=== PATIENT | male | born 2000 | race Caucasian/White ===

== ENCOUNTER 2023-07-01 13:45 | Inpatient (IN) | payer MEDICAID, SELFPAY ==
[2023-07-01 13:52] VITALS: BP 148/95; PULSE 114; RESP 18; TEMP 36.8; O2SAT 97
--- NOTE | 2023-07-01 14:06 | ED.C_ITS ---
HPI - Psych 2 General: Chief Complaint: Psychiatric Symptoms Stated Complaint: 96 Hold Time Seen by Provider: 07/01/23 14:03 Source: patient and family (grandmother) Mode of arrival: ambulatory Limitations: no limitations History of Present Illness: Patient is a 22-year-old male presents to ED today along with his grandmother on a 96-hour hold. According to hold paperwork patient is extremely paranoid and feels that people are out to get him. He is telling his grandmother to get him guns out of the safe so he can take care of them. Hold paperwork states he is having visual and auditory hallucinations along with bizarre behavior and increased agitation. He was reportedly seen at the [facility]. Grandmother states he was recently released from assisted approximately a week ago. He served a total of 3 years and she will secondary to drug charges. Grandmother states his biological mother has schizophrenia. His father is a chronic drug user. Patient himself has a history of drug abuse. Grandmother states he has also had lots of other childhood trauma. He has been on many psychiatric meds in the past although is not currently taking anything. Onset (ago): day(s) History of same: Yes Context: not taking psychiatric medications Associated symptoms: Reports auditory hallucinations and visual hallucinations; Deny depression, homicidal ideation or suicidal ideation Treatments prior to arrival: placed on mental health hold Review of Systems 2 Const: Denies: fever(s) or chills Card: Denies: chest pain, palpitations, lightheadedness or syncope Resp: Denies: dyspnea GI: Denies: abdominal pain, nausea, vomiting or diarrhea Skin/Breast: Denies: rash Neuro: Denies: headache(s) Psych: Reports: loss of interest, paranoia, visual hallucinations and auditory hallucinations; Denies: anxiety, depression, suicidal ideation or homicidal ideation Physical Exam 2 Const: COMMON NORMALS: no acute distress, patient oriented x3, alert and well nourished GENERAL APPEARANCE: cooperative and well kempt Resp: COMMON NORMALS: normal respiratory effort and clear to auscultation bilaterally AUSCULTATION: clear to auscultation bilaterally Cardio: COMMON NORMALS: regular rate and regular rhythm RATE: regular rate RHYTHM: regular rhythm Neuro: COMMON NORMALS: patient oriented x3 SENSORIUM/ORIENTATION: Yes alert Psych: COMMON NORMALS: mental status grossly normal, cooperative, normal affect, speech normal, activity/motor behavior normal, denies homicidal ideation and denies suicidal ideation APPEARANCE: Yes grossly normal and Yes well kempt ATTITUDE: Yes calm ACTIVITY/MOTOR BEHAVIOR: Yes appropriate eye contact and No psychomotor agitation SPEECH: Yes normal speech MOOD & AFFECT: Yes euthymic mood ATTENTION/CONCENTRATION: Yes attention grossly intact and Yes concentration grossly intact MEMORY/COGNITION: Yes memory grossly intact INSIGHT: Limited insight present (Psych) JUDGEMENT: Limited judgement present (Psych) Course 2 Consultations: Consultation #1: Dr. Banks-accepts to NPU Vital Signs: Vital signs: Vital Signs Temperature 98.2 F 07/01/23 13:52 Pulse Rate 114 H 07/01/23 13:52 Respiratory Rate 18 07/01/23 13:52 Blood Pressure 148/95 07/01/23 13:52 Pulse Oximetry 97 07/01/23 13:52 Oxygen Delivery Me thod Room Air 07/01/23 13:52 MDM - Psych Medical Decision Making Patient will be an admit to NPU to Dr. Banks. He is on a 96-hour hold. Medical Records I reviewed the patient's medical records. Lab Data I reviewed the patient's lab results. 07/01/23 14:24 07/01/23 14:24 Laboratory Results WBC 7.02 10^3/uL (3.29-11.43) 07/01/23 14:24 RBC 4.72 10^6/uL (3.85-5.65) 07/01/23 14:24 Hgb 14.60 g/dL (11.27-16.99) 07/01/23 14:24 Hct 45.0 % (37-53) 07/01/23 14:24 MCV 95.3 fl (82-101) 07/01/23 14:24 MCH 30.9 pg (27-33) 07/01/23 14:24 MCHC 32.4 g/dL (30-55) 07/01/23 14:24 RDW 13.1 % (12.1-15.1) 07/01/23 14:24 Plt Count 168 10^3/cmm (157-399) 07/01/23 14:24 MPV 11.6 fL (7.4-10.4) H 07/01/23 14:24 Neut % (Auto) 66.5 % 07/01/23 14:24 Lymph % (Auto) 18.1 % 07/01/23 14:24 [place] % (Auto) 10.5 % 07/01/23 14:24 Eos % (Auto) 1.9 % 07/01/23 14:24 Baso % (Auto) 0.9 % 07/01/23 14:24 Neut # (Auto) 4.67 10^3/uL (1.8-7.7) 07/01/23 14:24 Lymph # (Auto) 1.3 10^3/uL (0.8-4.8) 07/01/23 14:24 [place] # (Auto) 0.7 10^3/uL (0.2-0.9) 07/01/23 14:24 Eos # (Auto) 0.1 10^3/uL (0.0-0.8) 07/01/23 14:24 Baso # (Auto) 0.1 10^3/uL (0.0-0.1) 07/01/23 14:24 Nucleated RBC % (auto) 0 % 07/01/23 14: Nucleated RBCs # 0.0 /100WBC 07/01/23 14:24 Sodium 137 mmol/L (136-145) 07/01/23 14:24 Potassium 4.9 mmol/L (3.5-5.1) 07/01/23 14:24 Chloride 99 mmol/L (98-107) 07/01/23 14:24 Carbon Dioxide 28 mmol/L (22-29) 07/01/23 14:24 Anion Gap 14.9 (5-19) 07/01/23 14:24 BUN 19 mg/dL (6-20) 07/01/23 14:24 Creatinine 0.7 mg/dL (0.7-1.2) 07/01/23 14:24 GFR Calculation 138.6 mL/min (90-130) H 07/01/23 14:24 Glucose 102 mg/dL (65-115) 07/01/23 14:24 Calculated Osmolality 286 mOsm/kg (285-295) 07/01/23 14:24 Calcium 9.4 mg/dL (8.5-10.5) 07/01/23 14:24 Total Bilirubin 0.2 mg/dL (0.15-1.2) 07/01/23 14:24 AST 49 U/L (0-40) H 07/01/23 14:24 ALT 82 U/L (0-41) H 07/01/23 14:24 Alkaline Phosphatase 97 U/L (40-130) 07/01/23 14:24 Total Protein 7.7 g/dL (6.6-8.7) 07/01/23 14:24 Albumin 4.3 g/dL (3.5-5.2) 07/01/23 14:24 Globulin 3.4 g/dL (1.3-4.6) 07/01/23 14:24 Salicylates 0.5 mg/dL (3-10) L 07/01/23 14:24 Urine Opiates Screen Negative ng/mL (Negative) 07/01/23 14:14 Acetaminophen < 5.0 ug/mL (10-30) L 07/01/23 14:24 Ur Barbiturates Screen Negative ng/mL (Negative) 07/01/23 14:14 Ur Phencyclidine Scrn Negative ng/mL (Negative) 07/01/23 14:14 Ur Amphetamines Screen Negative ng/mL (Negative) 07/01/23 14:14 U Benzodiazepines Scrn Negative ng/mL (Negative) 07/01/23 14:14 Urine Cocaine Screen Negative ng/mL (Negative) 07/01/23 14:14 U Marijuana (THC) Screen Negative ng/mL (Negative) 07/01/23 14:14 Ethyl Alcohol < 10 mg/dL (0-10) 07/01/23 14:24 No radiology studies performed this visit Discharge Plan Discharge Patient Disposition: Admitted As Inpatient Clinical Impression: Acute psychosis, Involuntary commitment Condition: Stable Prescriptions: No Action No Known Home Medications Referrals: Wilson Wang MD [Primary Care Provider] - Coding Level of Care Code ED Track Production Engineer for Howard Ansari
[2023-07-01 14:34] LABS: Basophils # 0.1 10^3/uL (0.0-0.1); Basophils % 0.9 %; Eosinophils # 0.1 10^3/uL (0.0-0.8); Eosinophils % 1.9 %; Lymphocytes # 1.3 10^3/uL (0.8-4.8); Lymphocytes % 18.1 %; Mean Corpuscular HGB Conc 32.4 g/dL (30-55); Mean Corpuscular Hemoglobin 30.9 pg (27-33); Mean Corpuscular Volume 95.3 fl (82-101); Mean Platelet Volume 11.6 fL (7.4-10.4); Monocytes # 0.7 10^3/uL (0.2-0.9); Monocytes % 10.5 %; Neutrophils # 4.67 10^3/uL (1.8-7.7); Neutrophils % 66.5 %; Nucleated Red Blood Cells % 0 %; Platelet Count 168 10^3/cmm (157-399); Red Blood Count 4.72 10^6/uL (3.85-5.65); Red Cell Distribution Width 13.1 % (12.1-15.1); White Blood Count 7.02 10^3/uL (3.29-11.43)
[2023-07-01 14:35] LABS: Amphetamines Screen Urine Negative (Negative); Barbiturates Screen Urine Negative (Negative); Benzodiazepines Screen Urine Negative (Negative); Cocaine Screen Urine Negative (Negative); Opiate Screen Urine Negative (Negative); PCP Screen Urine Negative (Negative); THC Screen Urine Negative (Negative)
[2023-07-01 15:00] LABS: Alanine Aminotransferase 82 U/L (0-41); Albumin Level 4.3 g/dL (3.5-5.2); Alkaline Phosphatase 97 U/L (40-130); Anion Gap 14.9 (5-19); Aspartate Amino Transferase 49 U/L (0-40); Blood Urea Nitrogen 19 mg/dL (6-20); Calcium 9.4 mg/dL (8.5-10.5); Carbon Dioxide 28 mmol/L (22-29); Chloride 99 mmol/L (98-107); Globulin 3.4 g/dL (1.3-4.6); Glomerular Filtration Rate 138.6 mL/min (90-130); Glucose 102 mg/dL (65-115); Osmolality Calculated 286 mOsm/kg (285-295); Potassium 4.9 mmol/L (3.5-5.1); Salicylate 0.5 mg/dL (3-10); Sodium 137 mmol/L (136-145); Total Bilirubin 0.2 mg/dL (0.15-1.2); Total Protein 7.7 g/dL (6.6-8.7)
[2023-07-01 15:01] LABS: Acetaminophen < 5.0 ug/mL (10-30); Alcohol Level < 10 mg/dL (0-10)
--- NOTE | 2023-07-01 15:16 | PC.NURSE ---
96 hr rights reviewed with patient @1405 with assistance of [facility] security dispatcher Syd. All education reviewed. No questions or concerns. Patient did exhibit agitation towards grandmother who was sitting with him. [address], Grandmother was asked to leave and educated on visiting hours and policy through [facility]. She left without any incident. Patient copy was left with patient.
[2023-07-01 15:29] VITALS: BP 129/79; PULSE 100; RESP 16; O2SAT 98
[2023-07-01 15:50] VITALS: BP 129/85; PULSE 101; RESP 16; TEMP 36.7; O2SAT 98
[2023-07-01] MEDS: nicotine 2 mg Gum BUCCAL ×2 (16:07→18:09)
--- NOTE | 2023-07-01 17:07 | PC.NURSE ---
Patient arrived on unit with security via wheelchair at 1549. Patient cooperative during assessment. Patient given a sandwhich and drink.Patient thoroughly searched; no contraband uncovered.
[2023-07-01] MEDS: hyDROXYzine 25 mg Capsule 50 MG PO (17:49)
[2023-07-01 20:04] VITALS: BP 112/71; PULSE 93; RESP 17; TEMP 36.7; O2SAT 99
[2023-07-01] MEDS: nicotine 4 mg lozenge MUCOUS MEM (20:39)
[2023-07-02 06:00] VITALS: BP 109/66; PULSE 88; RESP 16; TEMP 36.6; O2SAT 98
[2023-07-02] MEDS: nicotine 4 mg lozenge MUCOUS MEM ×4 (07:12→19:15)
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
[2023-07-02] MEDS: OLANZapine 5 mg ODT PO (10:20)
[2023-07-02 14:00] VITALS: BP 109/65; PULSE 105; RESP 20; TEMP 36.9; O2SAT 97
--- NOTE | 2023-07-02 18:33 | PC.NURSE ---
ROOM SEARCH PREFORMED BY STAFF NO CONTRABAND FOUND.
--- NOTE | 2023-07-02 18:34 | PC.NURSE ---
ROOM SEARCH PREFORMED BY STAFF NO CONTRABAND FOUND.
[2023-07-02 20:31] VITALS: BP 157/95; PULSE 95; RESP 17; O2SAT 99
[2023-07-02] MEDS: quetiapine XR (24HR) 300 mg Tablet PO (20:52)
[2023-07-02] MEDS: trazodone 50 mg Tablet PO (20:52)
[2023-07-03 06:00] VITALS: BP 120/72; PULSE 71; RESP 16; TEMP 36.2; O2SAT 95
[2023-07-03] MEDS: nicotine 4 mg lozenge MUCOUS MEM ×3 (11:54→20:57)
[2023-07-03 14:00] VITALS: BP 106/55; PULSE 108; RESP 17; TEMP 36.6; O2SAT 96
--- NOTE | 2023-07-03 14:02 | P.NPUPN_ITS ---
Subjective NPU 2 Subjective: 22-year-old male with a history of bipol ar 1 disorder admitted with psychosis with decreased need for sleep, and paranoia. Patient had reported improved sleep on Seroquel XR yesterday. He had appeared less grandiose. He had reported improved energy. Patient reported that he continued to have thoughts of his time in [facility] where he had been traumatized. He had reported that he frequently feels on edge when he is outside. He reports that he often struggles with sleep and has flashbacks regarding traumatic events in his life. He reports that he struggles with getting those thoughts out of his mind and states that he sometimes feels that he is back in that situation again. He had reported that he struggles with repeatedly thinking about the time where he was arrested and states that he frequently feels that other people are trying to mess with him. Mental Status Exam 2 MSE Comments: Patient is a thin white male who was alert and oriented to person place and time. His hygiene was fair. There was no evidence of any abnormal involuntary motor movements tics or tremors. His speech was normal in rate today with normal in volume. His mood was described as better. His affect was less irritable. His thought process was linear with less rumination with continued focus on his ideas of persecution. His thought content showed no evidence of homicidal or suicidal ideation. There was significant ideas of reference. He did not appear to be responding to internal stimuli. His insight is impaired. His judgment is poor. His impulse control appeared limited at this time. Vitals/I&O/Wt Last Vital Signs Temp 97.2 F L 07/03/23 06:00 Pulse 71 07/03/23 06:00 Resp 16 07/03/23 06:00 BP 120/72 07/03/23 06:00 Pulse Ox 95 07/03/23 06:00 O2 Del Method Room Air 07/01/23 15:51 Weight last 48 hrs Weight 74.899 kg Data NPU 07/01/23 14:24 07/01/23 14:24 A&P Assessment and plan (1) Bipolar I disorder with scar: (2) Acute psychosis: (3) PTSD (post-traumatic stress disorder): Plan 22-year-old male involuntarily placed in psychiatric facility with a history of psychosis currently showing evidence of scar. The patient is agreeable to receiving treatment here as he has been without medications for last 8 months. #1.? Engage patient in individual milieu and group therapy. #2?? Recommend sober living treatment at the highest level of care to which the patient is willing to commit #3??? Continue Seroquel [id number] at night with increase planned. Patient already showing improvement. #4?? TO-15 minute checks #5?? Will attempt to gather collateral information Involuntary Hold Information 2 96 Hour Hold: 96 Hour Involuntary Admission: Yes 96 Hour Hold Ending Date: 07/07/23 96 Hour Hold Ending Time: 13:52 Attestations NPU 2 Medical Necessity Statement*: Inpatient hospitalization is medically necessary and deemed to ?be ?the clinically appropriate intervention ?at this time.? We will monitor/initiate medications and make changes as indicated.? The patient?s likely length of stay is 7-10 days. Coding Level of Care Code Acute Code for [facility] Fwd Diagnoses Bipolar I disorder with scar F31.10 Acute psychosis F23 PTSD (post-traumatic stress disorder) F43.10
[2023-07-03] MEDS: quetiapine XR (24HR) 50 mg Tablet 100 MG PO (17:51)
[2023-07-03] MEDS: quetiapine XR (24HR) 300 mg Tablet PO (17:51)
[2023-07-04 06:00] VITALS: RESP 15
--- NOTE | 2023-07-04 06:21 | PC.NURSE ---
Only respirations documented per charge nurse, Bc WHEELER, due to the patient level of volatility, agitation, and safety of staff and patient.
[2023-07-04] MEDS: nicotine 4 mg lozenge MUCOUS MEM ×4 (09:40→18:06)
--- NOTE | 2023-07-04 11:03 | PC.NURSE ---
room search preformed no contra band found. beds stripped and cleaned.
[2023-07-04 13:14] VITALS: BP 150/96; PULSE 121; RESP 20; TEMP 36.9; O2SAT 97
--- NOTE | 2023-07-04 16:08 | W.PM.NPUPNS ---
Subjective NPU Subjective: 22-year-old male with a history of bipolar 1 disorder admitted with psychosis with decreased need for sleep, and paranoia. The patient did not report that his thoughts were racing as much today. He had continued to perseverate about being here against his will and continue to state his suspicions that his grandmother was trying to take over his rights. He reported no side effects from the Seroquel extended release. He stated that he was willing to consider living in another place if it meant that he could go home. He stated that he would be able to take a pill at night to help him with his thoughts. He had continued to endorse a somewhat traumatic history of having been placed in dangerous situations throughout his life and reported that he had been in isolation for a good deal of time while he was incarcerated from the age of 16 until the age of 18. Patient did not elicit any thoughts of hurting himself or others on the unit. He was compliant and redirectable. He did continue to express frustration with staff regarding his involuntary hospitalization. He had reported that he had done nothing wrong and continued to report that others outside of here were trying to keep him here unnecessarily. Mental Status Exam MSE Comments: Patient is a thin white male who was alert and oriented to person place and time. His hygiene was fair. There was no evidence of any abnormal involuntary motor movements tics or tremors. His speech was normal in rate today with normal in volume. His mood was described as okay. His affect was somewhat flat. His thought process was linear with continued rumination regarding his involuntary hospitalization. His thought content showed no evidence of homicidal or suicidal ideation. There was significant ideas of reference and ideas of persecution. He did not appear to be responding to internal stimuli. His insight is limited. His judgment is poor. His impulse control appeared limited at this time. Vitals/I&O/Wt Last Vital Signs Temp 98.4 F 07/04/23 13:14 Pulse 121 H 07/04/23 13:14 Resp 20 H 07/04/23 13:14 BP 150/96 07/04/23 13:14 Pulse Ox 97 07/04/23 13:14 O2 Del Method Room Air 07/04/23 13:14 Weight last 48 hrs Weight 74.899 kg Data NPU 07/01/23 14:24 04/12/24 14:24 A&P Assessment and plan (1) Bipolar I disorder with scar: (2) Acute psychosis: (3) PTSD (post-traumatic stress disorder): Plan 22-year-old male involuntarily placed in psychiatric facility with a history of psychosis currently showing evidence of scar. The patient is agreeable to receiving treatment here as he has been without medications for last 8 months. #1.? Engage patient in individual milieu and group therapy. #2?? Recommend sober living treatment at the highest level of care to which the patient is willing to commit #3??? Increase seroquel 500mg xl at 6Pm. Patient continuing to show improvement. #4?? TO-15 minute checks #5?? Will attempt to gather collateral information Involuntary Hold Information 96 Hour Hold: 96 Hour Involuntary Admission: Yes 96 Hour Hold Ending Date: 07/07/23 96 Hour Hold Ending Time: 13:52 Attestations NPU Medical Necessity Statement*: Inpatient hospitalization is medically necessary and deemed to ?be ?the clinically appropriate intervention ?at this time.? We will monitor/initiate medications and make changes as indicated.? The patient?s likely length of stay is 2-3 days. Coding Level of Care Code Acute Code for [facility] Fwd Diagnoses Bipolar I disorder with scar F31.10 Acute psychosis F23 PTSD (post-traumatic stress disorder) F43.10
[2023-07-04] MEDS: quetiapine XR (24HR) 50 mg Tablet 200 MG PO (17:34)
[2023-07-04] MEDS: quetiapine XR (24HR) 300 mg Tablet PO (17:34)
[2023-07-04 20:01] VITALS: BP 149/91; PULSE 86; RESP 17; TEMP 36.8; O2SAT 97
[2023-07-05 06:43] VITALS: RESP 16
--- NOTE | 2023-07-05 06:54 | PC.NURSE ---
Per charge nurse just count respirations, do not wake the patient up from sleep, this is for staff and patient safety
[2023-07-05] MEDS: nicotine 4 mg lozenge MUCOUS MEM ×2 (07:53→16:00)
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
[2023-07-05 14:00] VITALS: BP 116/78; PULSE 92; RESP 20; TEMP 36.6; O2SAT 99
[2023-07-05 16:12] VITALS: BP 116/78; PULSE 92; RESP 20; TEMP 36.6; O2SAT 99
== END 2023-07-05 17:05 | disposition home or self-care (01) | DRG 885 ==
LOC: ER 15:06 → NP 15:20
PROVIDERS: Admitting Provider Psychiatry & Neurology Psychiatry; Emergency Provider Physician Assistant; PCP Family Medicine; Visit Provider Psychiatry & Neurology Psychiatry
DX: F23 Brief psychotic disorder (principal); F31.2 Bipolar disorder, current episode manic severe with psychotic features; F43.12 Post-traumatic stress disorder, chronic
CPT/HCPCS: 36415; 80053; 80306; 80307; 85025; 97165; 99285; J9999

== ENCOUNTER 2023-09-15 12:58 | Inpatient (IN) | payer MEDICAID, SELFPAY ==
[2023-09-15 13:00] VITALS: BP 155/89; PULSE 93; RESP 18; TEMP 36.9; O2SAT 97; BMI 26.4
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
[2023-09-15 13:12] LABS: Basophils % 0.6 %; Eosinophils # 0.1 10^3/uL (0.0-0.8); Eosinophils % 1.9 %; Hematocrit 44.7 % (37-53); Lymphocytes # 1.3 10^3/uL (0.8-4.8); Lymphocytes % 23.9 %; Mean Corpuscular HGB Conc 33.8 g/dL (30-55); Mean Corpuscular Hemoglobin 31.1 pg (27-33); Monocytes # 0.9 10^3/uL (0.2-0.9); Monocytes % 16.5 %; Neutrophils # 2.97 10^3/uL (1.8-7.7); Neutrophils % 56.3 %; Nucleated Red Blood Cells % 0 %; Platelet Count 214 10^3/cmm (157-399); Red Blood Count 4.86 10^6/uL (3.85-5.65); Red Cell Distribution Width 12.6 % (12.1-15.1); White Blood Count 5.27 10^3/uL (3.29-11.43)
[2023-09-15 13:24] VITALS: BP 155/89; PULSE 93; RESP 18; TEMP 36.9; O2SAT 97
[2023-09-15 13:32] LABS: Ammonia 37 umol/L (16-60)
[2023-09-15 13:40] LABS: Bilirubin Urine Neg (Negative); Blood Urine Neg (Negative); Glucose Urine UA Norm (Normal); Ketones Urine Negative (Negative); Leukocyte Esterase Urine Negative (Negative); Nitrate Urine Negative (Negative); Protein Urine Neg (Negative); Urine Appearance Clear (CLEAR); Urine Color Yellow (Yellow); Urobilinogen Urine Norm (Negative); pH Urine 7 (5-7)
[2023-09-15 13:41] LABS: Alanine Aminotransferase 61 U/L (0-41); Albumin Level 4.3 g/dL (3.5-5.2); Alkaline Phosphatase 101 U/L (40-130); Anion Gap 15.2 (5-19); Aspartate Amino Transferase 39 U/L (0-40); Blood Urea Nitrogen 10 mg/dL (6-20); Carbon Dioxide 24 mmol/L (22-29); Chloride 103 mmol/L (98-107); Creatinine Clr Calc Pharmacy 135.6994; Globulin 3.4 g/dL (1.3-4.6); Glomerular Filtration Rate 91.8 mL/min (90-130); Glucose 112 mg/dL (65-115); Osmolality Calculated 286 mOsm/kg (285-295); Potassium 4.2 mmol/L (3.5-5.1); Salicylate 1.4 mg/dL (3-10); Sodium 138 mmol/L (136-145); Thyroid Stimulating Hormone 6.21 uIU/mL (0.27-4.20); Total Bilirubin 0.2 mg/dL (0.15-1.2); Total Protein 7.7 g/dL (6.6-8.7)
[2023-09-15 13:42] LABS: Add Urine Culture? No; Alcohol Level < 10 mg/dL (0-10)
[2023-09-15 13:47] LABS: Amphetamines Screen Urine Negative (Negative); Barbiturates Screen Urine Negative (Negative); Benzodiazepines Screen Urine Negative (Negative); Cocaine Screen Urine Negative (Negative); Opiate Screen Urine Negative (Negative); PCP Screen Urine Negative (Negative); THC Screen Urine Negative (Negative)
--- NOTE | 2023-09-15 13:56 | ECG_ITS ---
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 Measurements Intervals [place] Rate: 92 P: 31 SD: 174 QRS: 40 QRSD: 93 T: 30 QT: 322 QTc: 398 Interpretive Statements SINUS RHYTHM POSSIBLE RIGHT VENTRICULAR CONDUCTION DELAY [RSR (QR) IN V1/V2] No previous ECG available for comparison Electronically Signed On 09-15-2023 14:11:26 CDT by Luis Fox M.D. [id number]
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
[2023-09-15] MEDS: ziprasidone 20 mg/mL SDV IM (17:43)
[2023-09-15] MEDS: LORazepam 2 mg/mL INJ 10 mL MDV IM (17:43)
--- NOTE | 2023-09-15 17:44 | PC.NURSE ---
pt very agitated, standing at ER 8 doorway, pacing. pt states he shouldn't be here, states someone in [facility] is the reason he is admitted on a 96hr hold. This nurse, security, and multiple ED staff members at bedside.
[2023-09-15 18:10] VITALS: BP 140/95; PULSE 84; RESP 16; TEMP 36.5; O2SAT 95
[2023-09-15 18:19] VITALS: BP 154/81; RESP 18
[2023-09-16 06:00] VITALS: BP 117/74; PULSE 69; RESP 16; TEMP 36.6; O2SAT 97
[2023-09-16] MEDS: nicotine 4 mg lozenge MUCOUS MEM ×3 (09:46→14:42)
--- NOTE | 2023-09-16 10:34 | PC.NURSE ---
PT CURRENTLY DENIES SI/HI/AH/VH. PT IS RESTLESS AND OBSESSIVE. PT SPEECH IS MUMBLED, RAMBLING, AND PRESSURED. PT CURRENTLY DENIES DEPRESSION AND ANXIETY. PT WAS COOPERATIVE WITH ASSESSMENT. PT CURRENT NEEDS ARE MET AT THIS TIME.
[2023-09-16 14:00] VITALS: BP 146/85; PULSE 99; RESP 16; TEMP 36.7; O2SAT 97
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
[2023-09-16] MEDS: nicotine 2 mg Gum BUCCAL ×3 (17:19→21:27)
[2023-09-16 21:22] VITALS: BP 144/86; PULSE 88; RESP 18; TEMP 36.8; O2SAT 96
[2023-09-16] MEDS: quetiapine XR (24HR) 300 mg Tablet 600 MG PO (22:10)
[2023-09-17 06:00] VITALS: BP 128/74; PULSE 77; RESP 18; O2SAT 97
--- NOTE | 2023-09-17 09:19 | PC.NURSE ---
RESTING IN BED, AROUSES TO VOICE. DENIES SI/HI AND AVH AT THIS TIME. PT IS NOTED TO HAVE FLAT AFFECT AND WITHDRAWS TO ROOM. RATES ANXIETY 4/10 AND DEPRESSION 5/10. PT REPORTS WHEN HE IS NOT SLEEPING HE HAS RACING THOUGHTS. DENIES PAIN. PT TAKES NOT SCHEDULED AM MEDICATIONS THIS AM, DECLINES PRN FOR ANXIETY. STATES GOAL FOR THE DAY IS TO TALK TO THE DR. ALL QUESTIONS ANSWERED AND SUPPORT WAS VOICED.
[2023-09-17] MEDS: nicotine 2 mg Gum BUCCAL (12:00)
[2023-09-17 14:00] VITALS: BP 142/91; PULSE 79; RESP 20; TEMP 36.9; O2SAT 96
[2023-09-17] MEDS: nicotine 4 mg lozenge MUCOUS MEM ×3 (14:03→19:16)
[2023-09-17] MEDS: quetiapine XR (24HR) 300 mg Tablet 600 MG PO (19:16)
--- NOTE | 2023-09-17 20:07 | P.NPUPN_ITS ---
Subjective NPU 2 Subjective: 22-year-old male with a history of bipol ar 1 disorder admitted with psychosis with decreased need for sleep, and paranoia. He continued to report that his brain was going through a time loop. He reported that his thoughts continue to race. He had expressed frustration at not being able to find the right medication to help him. He had reported that he had rapid changes in mood that his sleep that appeared to be triggered by the statements that his grandmother made. He reported having frequent periods of depression as well. Mental Status Exam 2 MSE Comments: Patient is a well-nourished well-developed white male in hospital scrubs with adequate grooming and limited eye contact. Some tattoos on exposed skin. No abnormal movements except for psychomotor retardation. Cooperative with exam in mild to moderate distress. Speech was normal in volume and normal rate. Mood described as frustrated. His affect was subdued and guarded. Thought process was linear. Thought content: Patient denied suicidal or homicidal ideation, there were no delusions reported but concerns for paranoia and persecutory ideas of reference/delusions were noted, he denied auditory or visual hallucinations. He did not appear to be responding to internal stimuli. The patient appeared to be experiencing some confusion and distress related to past traumatic events. He denied any current suicidal ideation or hallucinations. He reported feeling drowsy but denied any paranoia. Attention and concentration were intact and memory was somewhat unreliable but none were formally tested. He is alert and oriented x 3. Insight and judgment were limited and impulse control was limited. Vitals/I&O/Wt Last Vital Signs Temp 98.4 F 09/17/23 14:00 Pulse 79 09/17/23 14:00 Resp 20 H 09/17/23 14:00 BP 142/91 09/17/23 14:00 Pulse Ox 96 09/17/23 14:00 O2 Del Method Room Air 09/17/23 06:00 Data NPU 09/15/23 13:07 09/15/23 13:07 A&P Assessment and plan (1) Acute psychosis: (2) Bipolar I disorder with scar: (3) PTSD (post-traumatic stress disorder): Plan 22-year-old male with a significant history of mental health and addiction issues known to this unit from hospitalization 2-1/2 months ago presents at the behest of his outpatient treatment team secondary to concerns for continued psychosis on the current medication. The patient appears to be struggling with past trauma and is expressing dissatisfaction with his current medication regimen. There seems to be some confusion regarding past events, which may be contributing to his current distress. His lack of employment and feelings of boredom may also be contributing factors to his mental health issues. 1.? Increase Seroquel xr to 700mg as patient does not wish to consider Invega long acting injectable despite support of its effectiveness. 2.? Continue every 15 minute checks for safety. 3.??Encourage individual, group and milieu therapy. 4.? Encourage sober living treatment after discharge at the highest level care to which he is willing to commit. 5.??Will attempt to gather collateral information. Involuntary Hold Information 2 96 Hour Hold: 96 Hour Involuntary Admission: Yes 96 Hour Hold Ending Date: 09/21/23 96 Hour Hold Ending Time: 18:30 Attestations NPU 2 Medical Necessity Statement*: Inpatient hospitalization is medically necessary and the clinically appropriate intervention at this time.? We will monitor/initiate medications and make changes as indicated.? ? The patient?s likely length of stay is 7-10 days. Coding Level of Care Code Acute Code for g Fwd Diagnoses Acute psychosis F23 Bipolar I disorder with scar F31.10 PTSD (post-traumatic stress disorder) F43.10
[2023-09-17 20:56] VITALS: BP 146/88; PULSE 106; RESP 18; TEMP 37.1; O2SAT 97
[2023-09-17] MEDS: quetiapine XR (24HR) 50 mg Tablet 100 MG PO (21:00)
[2023-09-18 06:00] VITALS: BP 118/61; PULSE 93; RESP 17; TEMP 36.5; O2SAT 98
[2023-09-18] MEDS: nicotine 4 mg lozenge MUCOUS MEM ×4 (08:51→18:44)
--- NOTE | 2023-09-18 12:01 | PC.NURSE ---
PT GRANDMOTHER WHO IS ON THE HIPPA FORMS CALLED TO CHECK IN ON PT SPOKE WITH THIS NURSE ABOUT HER CONCERNS. PT GRANDMOTHER IS REQUESTING GENETIC TESTING THAT THIS NURSE IS UNSURE IS AVAILABLE AT THIS FACILITY. SHE WOULD LIKE TO SPEAK WITH [employer] INSPECTOR. PT GRANDMOTHER BELIEVES PT NEEDS A BUSINESS TEAM LEADER TO ASSIST IN HIS CARE. PT GRANDMOTHER IN UNHAPPY WITH MEDICATION CHANGES. THIS NURSE EXPLAINED THAT MEDICATION CHANGES WILL BE GRADUAL AND TAKE TIME. SHE CONTINUED TO SOUND UPSET HOWEVER WAS MORE WILLING TO UNDERSTAND THE CURRENT SITUATION.
[2023-09-18] MEDS: nicotine 2 mg Gum BUCCAL (12:07)
[2023-09-18 14:00] VITALS: BP 141/85; PULSE 102; RESP 20; TEMP 36.6; O2SAT 97
[2023-09-18] MEDS: quetiapine XR (24HR) 50 mg Tablet 100 MG PO (19:06)
[2023-09-18] MEDS: quetiapine XR (24HR) 300 mg Tablet 600 MG PO (19:06)
[2023-09-18 19:41] VITALS: BP 139/89; PULSE 99; RESP 18; TEMP 37.1; O2SAT 97
--- NOTE | 2023-09-18 19:46 | PC.NURSE ---
Grandmother called to see if any other medications had been added.
--- NOTE | 2023-09-18 20:07 | P.NPUPN_ITS ---
Subjective NPU 2 Subjective: 22-year-old male with a history of bipol ar 1 disorder admitted with psychosis with decreased need for sleep, and paranoia. The patient had stated that he had struggled with periods of mixed episodes of scar and reported that he had done better with his thoughts slowing down on Seroquel XR. He reported having no suicidal thoughts. He had reported that he continued to have worries about his medications but appeared to understand that he needed to take medications to avoid relapse and a reemergence of either depression or scar. He had reported that he had increased paranoia and racing thoughts along with unusual and intense paranoia and grandiosity particularly when manic. He had been polite and cooperative on the milieu but no episodes of aggression. Mental Status Exam 2 MSE Comments: Patient is a well-nourished well-developed white male in hospital scrubs with adequate grooming and limited eye contact. He was alert and oriented to person place time and situation. Some tattoos on exposed skin. No abnormal movements except for psychomotor retardation. He was cooperative with exam in mild to moderate distress. Speech was normal in volume and normal rate. Mood described as okay. His affect was subdued still. Thought process was linear. Thought content: Patient denied suicidal or homicidal ideation, there were no delusions reported but concerns for paranoia and persecutory ideas of reference/delusions were noted, he denied auditory or visual hallucinations. He did not appear to be responding to internal stimuli. Attention and concentration were intact and memory was somewhat unreliable but none were formally tested. Insight and judgment were limited and impulse control was limited. Vitals/I&O/Wt Last Vital Signs Temp 98.7 F 09/18/23 19:41 Pulse 99 09/18/23 19:41 Resp 18 09/18/23 19:41 BP 139/89 09/18/23 19:41 Pulse Ox 97 09/18/23 19:41 O2 Del Method Room Air 09/18/23 06:00 Weight last 48 hrs Weight 96.162 kg Data NPU 09/15/23 13:07 09/15/23 13:07 A&P Assessment and plan (1) Acute psychosis: (2) Bipolar I disorder with scar: (3) PTSD (post-traumatic stress disorder): Plan 22-year-old male with a significant history of mental health and addiction issues known to this unit from hospitalization 2-1/2 months ago presents at the behest of his outpatient treatment team secondary to concerns for continued psychosis on the current medication. The patient appears to be struggling with past trauma and is expressing dissatisfaction with his current medication regimen. There seems to be some confusion regarding past events, which may be contributing to his current distress. His lack of employment and feelings of boredom may also be contributing factors to his mental health issues. 1.? Increase Seroquel xr to 800mg currently. 2.? Continue every 15 minute checks for safety. 3.??Encourage individual, group and milieu therapy. 4.? Encourage sober living treatment after discharge at the highest level care to which he is willing to commit. 5.??Will attempt to gather collateral information. Involuntary Hold Information 2 96 Hour Hold: 96 Hour Involuntary Admission: Yes 96 Hour Hold Ending Date: 09/21/23 96 Hour Hold Ending Time: 18:30 Attestations NPU 2 Medical Necessity Statement*: Inpatient hospitalization is medically necessary and the clinically appropriate intervention at this time.? We will monitor/initiate medications and make changes as indicated.? ? The patient?s likely length of stay is 4-6 days. Coding Level of Care Code Acute Code for g Fwd Diagnoses Acute psychosis F23 Bipolar I disorder with scar F31.10 PTSD (post-traumatic stress disorder) F43.10
[2023-09-19 06:00] VITALS: BP 130/75; PULSE 63; RESP 16; O2SAT 98
--- NOTE | 2023-09-19 09:12 | PC.NURSE ---
PT UP PACING HALLWAY. PT DENIES SI/HI AND AVH AT THIS TIME. DENIES PAIN. RATES ANXIETY AND DEPRESSION /. STATES HE SLEPT GOOD. PT STATES GOAL IS TO GET THROUGH THE DAY. PT IS NOTED TO HAVE A FLAT AFFECT AND LIMITED EYE CONTACT. PT WAS EDUCATED ABOUT RECENT MED CHANGE WITH SEROQUEL. VERBALIZED UNDERSTANDING. ALL QUESTIONS ANSWERED AND SUPPORT VOICED.
[2023-09-19] MEDS: nicotine 4 mg lozenge MUCOUS MEM ×6 (09:19→20:49)
[2023-09-19 14:00] VITALS: BP 138/88; PULSE 127; RESP 20; TEMP 36.4; O2SAT 98
--- NOTE | 2023-09-19 18:32 | P.NPUPN_ITS ---
Subjective NPU 2 Subjective: 22-year-old male with a history of bipol ar 1 disorder admitted with psychosis with decreased need for sleep, and paranoia. Patient had reported that he was no longer hearing voices or having reoccurring thoughts. He had expressed stress at living in his home situation. The patient had appeared to understand the necessity of remaining on his medications to minimize his mixed mood symptoms. He had denied having any depression currently. He had stated that he felt ready to return home. He did report adequate sleep but did acknowledge feeling a little tired this morning. He had reported that his energy was okay. He was able to attend groups. He had appeared less distracted. No bizarre behavior unit was appreciated with no evidence of aggression or agitation. Mental Status Exam 2 MSE Comments: Patient is a well-nourished well-developed white male in hospital scrubs with adequate grooming and fair eye contact. He was alert and oriented to person place time and situation. Some tattoos on exposed skin. No abnormal movements except for psychomotor retardation. He was cooperative with exam in mild idistress. Speech was normal in volume and normal rate. Mood described as better. His affect was mildly restricted today. Thought process was linear and logical. Thought content: Patient denied suicidal or homicidal ideation, No overt delusions, he denied auditory or visual hallucinations. He did not appear to be responding to internal stimuli. Attention and concentration appeared better. He was more conversant. Insight was improving and judgment was improving as well. Impulse control appeared to be better.. Vitals/I&O/Wt Last Vital Signs Temp 97.6 F 09/19/23 14:00 Pulse 127 H 09/19/23 14:00 Resp 20 H 09/19/23 14:00 BP 138/88 09/19/23 14:00 Pulse Ox 98 09/19/23 14:00 O2 Del Method Room Air 09/18/23 06:00 Weight last 48 hrs Weight 96.162 kg Data NPU 09/15/23 13:07 09/15/23 13:07 A&P Assessment and plan (1) Acute psychosis: (2) Bipolar I disorder with scar: (3) PTSD (post-traumatic stress disorder): Plan 22-year-old male with a significant history of mental health and addiction issues known to this unit from hospitalization 2-1/2 months ago presents at the behest of his outpatient treatment team secondary to concerns for continued psychosis on the current medication. The patient appears to be struggling with past trauma and is expressing dissatisfaction with his current medication regimen. There seems to be some confusion regarding past events, which may be contributing to his current distress. His lack of employment and feelings of boredom may also be contributing factors to his mental health issues. 1.? Continue Seroquel xr to 800mg daily. Recommend weekly therapy to help patient with PTSD issues. 2.? Continue every 15 minute checks for safety. 3.??Encourage individual, group and milieu therapy. 4.? Encourage sober living treatment after discharge at the highest level care to which he is willing to commit. 5.??Will attempt to gather collateral information. Involuntary Hold Information 2 96 Hour Hold: 96 Hour Involuntary Admission: Yes 96 Hour Hold Ending Date: 09/21/23 96 Hour Hold Ending Time: 18:30 Attestations NPU 2 Medical Necessity Statement*: Inpatient hospitalization is medically necessary and the clinically appropriate intervention at this time.? We will monitor/initiate medications and make changes as indicated.? ? The patient?s likely length of stay is 1-2 days. Coding Level of Care Code Acute Code for g Fwd Diagnoses Acute psychosis F23 Bipolar I disorder with scar F31.10 PTSD (post-traumatic stress disorder) F43.10
[2023-09-19] MEDS: quetiapine XR (24HR) 300 mg Tablet 600 MG PO (20:29)
[2023-09-19] MEDS: quetiapine XR (24HR) 50 mg Tablet 200 MG PO (20:30)
[2023-09-19 22:00] VITALS: BP 146/77; PULSE 88; RESP 18; TEMP 36.7; O2SAT 95
[2023-09-20 06:00] VITALS: BP 136/82; PULSE 102; RESP 17; TEMP 36.4; O2SAT 98
[2023-09-20] MEDS: nicotine 4 mg lozenge MUCOUS MEM ×4 (08:15→14:57)
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
[2023-09-20 13:44] VITALS: BP 136/82; PULSE 102; RESP 17; TEMP 36.4; O2SAT 98
== END 2023-09-20 15:36 | disposition home or self-care (01) | DRG 885 ==
LOC: ER 13:50 → NP 17:49
PROVIDERS: Admitting Provider Psychiatry & Neurology Psychiatry; Emergency Provider Emergency Medicine; PCP Nurse Practitioner Family; Visit Provider Psychiatry & Neurology Psychiatry
DX: F31.10 Bipolar disorder, current episode manic without psychotic features, unspecified (principal); F23 Brief psychotic disorder; F43.10 Post-traumatic stress disorder, unspecified
CPT/HCPCS: 36415; 80053; 80306; 80307; 81001; 82140; 84443; 85025; 93005; 96372; 97150; 97165; 99285; J2060; J3486

== ENCOUNTER → 2024-01-17 09:05 | Outpatient (BNVA) | payer MEDICAID, SELFPAY | PROVIDERS: PCP Nurse Practitioner Family; Visit Provider Nurse Practitioner Psychiatric/Mental Health | DX: Z79.899 Other long term (current) drug therapy (principal) | CPT/HCPCS: 80061; 83036; 83721 ==

== ENCOUNTER 2024-02-28 00:35 | Inpatient (IN) | payer MEDICAID, SELFPAY ==
[2024-01-19 10:24] VITALS: BP 152/93; BMI 29.7
[2024-02-28 00:36] VITALS: BP 130/91; PULSE 87; RESP 16; TEMP 36.9; O2SAT 95; BMI 29.8
--- NOTE | 2024-02-28 00:42 | ED.C_ITS ---
HPI - Psych 2 General: Chief Complaint: Psychiatric Symptoms Stated Complaint: MHE Time Seen by Provider: 02/28/24 00:36 Source: patient Mode of arrival: EMS Limitations: no limitations History of Present Illness: Patient is a 23-year-old male who presents the emergency department by ambulance due to auditory hallucinations worsening over the past few months. He was recently in the neuropsychiatric unit at the beginning of September of this year, states that since being discharged things have been as good as they can be. He reportedly has been having worsening hallucinations despite being on Seroquel, and would like to be admitted to be reevaluated. He does not report that these hallucinations are command hallucinations, he is not having any suicidal or homicidal ideations. During examination he seems to be referencing these hallucinations that he is having at home, he is not having any visual hallucinations but states that he has been making people at home paranoid. Denies any drug or alcohol use. No significant life stressors recently. MD complaint: other (Auditory hallucinations.) Onset (ago): month(s) Duration: getting worse History of same: Yes Relieving factors: none Exacerbating factors: none Associated symptoms: Reports auditory hallucinations and depression; Deny visual hallucinations Related Data Previous Rx's Medication Instructions Recorded quetiapine 25 mg tablet (Seroquel) 25 mg PO BID PRN 01/17/24 agitation/hallucinations #60 tabs quetiapine 400 mg tablet,extended 800 mg (2 x 400 mg) PO QPM #60 tabs 01/17/24 release 24 hr Allergies Allergy/AdvReac Type Severity Reaction Status Date / Time risperidone [From Risperdal] Allergy Unknown Verified 02/28/24 00:43 Review of Systems 2 General: Reports: 10 or more systems reviewed and unremarkable except in HPI and below Const: Denies: fever(s), chills or fatigue Eyes: Denies: change in vision ENMT: Denies: throat pain, ear or mastoid pain or nasal discharge Card: Denies: chest pain, palpitations, swelling of feet/ankles or lightheadedness Resp: Denies: dyspnea, productive cough or wheezing GI: Denies: abdominal pain, nausea, vomiting, diarrhea or constipation : Denies: flank pain, difficulty urinating, dysuria or urinary frequency Musc: Denies: neck pain, back pain or joint pain Skin/Breast: Denies: rash Neuro: Denies: headache(s), numbness in extremities or weakness in extremities Psych: Reports: anxiety, depression and auditory hallucinations; Denies: visual hallucinations or tactile hallucinations PFSH ED 2 PFSH: Medical History Psychiatric care Physical Exam 2 Const: COMMON NORMALS: no acute distress and no limitations GENERAL APPEARANCE: cooperative and well developed ORIENTATION/CONSCIOUSNESS: Yes awake HENMT: COMMON NORMALS: normocephalic, atraumatic and hearing grossly normal bilaterally HEAD & SCALP: normocephalic and atraumatic Eye: COMMON NORMALS: Equal, round and reactive pupils present, EOMs intact bilaterally and conjunctivae normal CONJUNCTIVA: Yes conjunctivae normal P UPIL: Yes Equal, round and reactive pupils present Neck/C-Spine: COMMON NORMALS: full ROM, supple and no JVD Resp: COMMON NORMALS: normal respiratory effort, No retractions, No use of accessory muscles and clear to auscultation bilaterally AUSCULTATION: clear to auscultation bilaterally Cardio: COMMON NORMALS: no JVD, regular rate, regular rhythm, No clicks present (Cardio), No murmurs present (Cardio) and No rub (Cardio) RATE: r egular rate RHYTHM: regular rhythm Extremity: COMMON NORMALS: normal to inspection, full ROM and capillary refill normal Psych: COMMON NORMALS: mental status grossly normal and speech normal A PPEARANCE: Yes grossly normal ATTITUDE: Yes calm ACTIVITY/MOTOR BEHAVIOR: Yes Avoids eye contact (attititude/behavior) SPEECH: Yes normal speech M OOD & AFFECT: Yes euthymic mood THOUGHT CONTENT: No Suicidality present, No Homicidality present and Yes Hallucination(s) present auditory Skin: COMMON NORMALS: no rashes or lesions noted GENERAL SKIN EXAM: no rashes or lesions noted Course 2 Vital Signs: Vital signs: Vital Signs Temperature 98.4 F 02/28/24 00:36 Pulse Rate 87 02/28/24 00:36 Respiratory Rate 16 02/28/24 00:36 Blood Pressure 130/91 02/28/24 00:36 Pulse Oximetry 95 02/28/24 00:36 Oxygen Delivery Me thod Room Air 02/28/24 00:36 MDM - Psych Medical Decision Making Patient accepted to the neuropsychiatric unit by Dr. Pascal, cleared medically. Dr. Fofana put in admit orders. Lab Data 02/28/24 01:20 02/28/24 01:20 Laboratory Results WBC 7.68 10^3/uL (3.29-11.43) 02/28/24 01:20 RBC 5.42 10^6/uL (3.85-5.65) 02/28/24 01:20 Hgb 16.40 g/dL (11.27-16.99) 02/28/24 01:20 Hct 48.6 % (37-53) 02/28/24 01:20 MCV 89.7 fl (82-101) 02/28/24 01:20 MCH 30.3 pg (27-33) 02/28/24 01:20 MCHC 33.7 g/dL (30-55) 02/28/24 01:20 RDW 12.5 % (12.1-15.1) 02/28/24 01:20 Plt Count 246 10^3/cmm (157-399) 02/28/24 01:20 MPV 10.9 fL (7.4-10.4) H 02/28/24 01:20 Neut % (Auto) 66.6 % 02/28/24 01:20 Lymph % (Auto) 21.7 % 02/28/24 01:20 [place] % (Auto) 9.6 % 02/28/24 01:20 Eos % (Auto) 1.3 % 02/28/24 01:20 Baso % (Auto) 0.5 % 02/28/24 01:20 Neut # (Auto) 5.11 10^3/uL (1.8-7.7) 02/28/24 01:20 Lymph # (Auto) 1.7 10^3/uL (0.8-4.8) 02/28/24 01:20 [place] # (Auto) 0.7 10^3/uL (0.2-0.9) 02/28/24 01:20 Eos # (Auto) 0.1 10^3/uL (0.0-0.8) 02/28/24 01:20 Baso # (Auto) 0.0 10^3/uL (0.0-0.1) 02/28/24 01:20 Nucleated RBC % (auto) 0 % 02/28/24 01:20 Nucleated RBCs # 0.0 /100WBC 02/28/24 01:20 Sodium 137 mmol/L (136-145) 02/28/24 01:20 Potassium 4.0 mmol/L (3.5-5.1) 02/28/24 01:20 Chloride 100 mmol/L (98-107) 02/28/24 01:20 Carbon Dioxide 26 mmol/L (22-29) 02/28/24 01:20 Anion Gap 15.1 (5-19) 02/28/24 01:20 BUN 13 mg/dL (6-20) 02/28/24 01:20 Creatinine 1.2 mg/dL (0.7-1.2) 02/28/24 01:20 GFR Calculation 73.8 mL/min (90-130) L 02/28/24 01:20 Glucose 103 mg/dL (65-115) 02/28/24 01:20 Calculated Osmolality 286 mOsm/kg (285-295) 02/28/24 01:20 Calcium 9.6 mg/dL (8.5-10.5) 02/28/24 01:20 Total Bilirubin 0.3 mg/dL (0.15-1.2) 02/28/24 01:20 AST 19 U/L (0-40) 02/28/24 01:20 ALT 26 U/L (0-41) 02/28/24 01:20 Alkaline Phosphatase 112 U/L (40-130) 02/28/24 01:20 Total Protein 7.7 g/dL (6.6-8.7) 02/28/24 01:20 Albumin 4.5 g/dL (3.5-5.2) 02/28/24 01:20 Globulin 3.3 g/dL (1.3-4.6) 02/28/24 01:20 Salicylates < 0.3 mg/dL (3-10) L 02/28/24 01:20 Urine Opiates Screen Negative ng/mL (Negative) 02/28/24 00:49 Acetaminophen < 5.0 ug/mL (10-30) L 02/28/24 01:20 Ur Barbiturates Screen Negative ng/mL (Negative) 02/28/24 00:49 Ur Phencyclidine Scrn Negative ng/mL (Negative) 12/10/24 00:49 Ur Amphetamines Screen Negative ng/mL (Negative) 02/28/24 00:49 U Benzodiazepines Scrn Negative ng/mL (Negative) 02/28/24 00:49 Urine Cocaine Screen Negative ng/mL (Negative) 02/28/24 00:49 U Marijuana (THC) Screen Negative ng/mL (Negative) 02/28/24 00:49 Ethyl Alcohol < 10 mg/dL (0-10) 02/28/24 01:20 No radiology studies performed this visit Discharge Plan Discharge Patient Disposition: Admitted As Inpatient Clinical Impression: Bipolar I disorder with scar, Acute psychosis Condition: Stable Coding Level of Care Code ED Breaker Up for Howard Ansari
--- NOTE | 2024-02-28 01:25 | PC.NURSE ---
Pt belongings collected and gone through with Martha WHEELER, belongings document in the chart.
[2024-02-28 01:27] LABS: Basophils % 0.5 %; Eosinophils # 0.1 10^3/uL (0.0-0.8); Eosinophils % 1.3 %; Hematocrit 48.6 % (37-53); Lymphocytes # 1.7 10^3/uL (0.8-4.8); Lymphocytes % 21.7 %; Mean Corpuscular HGB Conc 33.7 g/dL (30-55); Mean Corpuscular Hemoglobin 30.3 pg (27-33); Mean Corpuscular Volume 89.7 fl (82-101); Mean Platelet Volume 10.9 fL (7.4-10.4); Monocytes # 0.7 10^3/uL (0.2-0.9); Monocytes % 9.6 %; Neutrophils # 5.11 10^3/uL (1.8-7.7); Neutrophils % 66.6 %; Nucleated Red Blood Cells % 0 %; Platelet Count 246 10^3/cmm (157-399); Red Blood Count 5.42 10^6/uL (3.85-5.65); Red Cell Distribution Width 12.5 % (12.1-15.1); White Blood Count 7.68 10^3/uL (3.29-11.43)
[2024-02-28 01:37] LABS: Amphetamines Screen Urine Negative (Negative); Barbiturates Screen Urine Negative (Negative); Benzodiazepines Screen Urine Negative (Negative); Cocaine Screen Urine Negative (Negative); Opiate Screen Urine Negative (Negative); PCP Screen Urine Negative (Negative); THC Screen Urine Negative (Negative)
[2024-02-28 01:44] LABS: Alanine Aminotransferase 26 U/L (0-41); Albumin Level 4.5 g/dL (3.5-5.2); Alkaline Phosphatase 112 U/L (40-130); Chloride 100 mmol/L (98-107); Sodium 137 mmol/L (136-145)
[2024-02-28 01:54] LABS: Anion Gap 15.1 (5-19); Aspartate Amino Transferase 19 U/L (0-40); Blood Urea Nitrogen 13 mg/dL (6-20); Calcium 9.6 mg/dL (8.5-10.5); Carbon Dioxide 26 mmol/L (22-29); Creatinine Clr Calc Pharmacy 115.1012; Globulin 3.3 g/dL (1.3-4.6); Glomerular Filtration Rate 73.8 mL/min (90-130); Glucose 103 mg/dL (65-115); Osmolality Calculated 286 mOsm/kg (285-295); Total Bilirubin 0.3 mg/dL (0.15-1.2); Total Protein 7.7 g/dL (6.6-8.7)
[2024-02-28 01:55] LABS: Acetaminophen < 5.0 ug/mL (10-30); Alcohol Level < 10 mg/dL (0-10); Salicylate < 0.3 mg/dL (3-10)
[2024-02-28 02:11] VITALS: BP 124/87; PULSE 82; RESP 18; O2SAT 96
[2024-02-28 02:22] VITALS: BP 128/77; PULSE 90; RESP 18; TEMP 36.6; O2SAT 96
[2024-02-28 06:00] VITALS: BP 108/61; PULSE 80; RESP 16; TEMP 36.6; O2SAT 95
[2024-02-28 14:00] VITALS: BP 108/74; PULSE 74; RESP 16; TEMP 36.6; O2SAT 98
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
[2024-02-28] MEDS: hyDROXYzine 25 mg Capsule 50 MG PO (18:08)
[2024-02-28 19:38] VITALS: BP 134/85; PULSE 69; RESP 18; TEMP 36.9; O2SAT 97
[2024-02-28] MEDS: quetiapine XR (24HR) 300 mg Tablet 600 MG PO (20:05)
[2024-02-28] MEDS: quetiapine XR (24HR) 50 mg Tablet 200 MG PO (20:05)
[2024-02-28] MEDS: trazodone 50 mg Tablet PO (20:05)
[2024-02-28] MEDS: acetaminophen 325 mg Tablet 650 MG PO (20:05)
[2024-02-29 06:00] VITALS: BP 116/74; PULSE 102; RESP 18; TEMP 36.4; O2SAT 98
--- NOTE | 2024-02-29 09:02 | W.PM.NPUPNS ---
Subjective NPU Subjective: Patient presented today reporting that he is doing okay but he is wanting to go home. We discussed him needing to be here to begin the cross titration of the Abilify. He said he would think about it. He is voluntary and we were working with family to identify whether there is any grounds for a 96-hour hold. He denied any side effects to the medication. Mental Status Exam MSE Comments: Patient is an overweight but well-developed white male in hospital scrubs with adequate grooming and limited eye contact. Some tattoos on exposed skin. No abnormal movements except for psychomotor retardation. Cooperative with exam in mild to moderate distress. Speech was decreased volume and normal rate. Mood described as okay and better than earlier, affect subdued and guarded. Thought process was linear. Thought content: Patient denied suicidal or homicidal ideation, there were no delusions reported but concerns for paranoia and persecutory ideas of reference/delusions were noted, he denied auditory or visual hallucinations currently but does report that they have been present recently. He did not appear to be responding to internal stimuli. Attention and concentration were intact and memory was somewhat unreliable but none were formally tested. He is alert and oriented x 3. Insight and judgment were limited and impulse control was limited. Vitals/I&O/Wt Last Vital Signs Temp 97.6 F 02/29/24 06:00 Pulse 102 H 02/29/24 06:00 Resp 18 02/29/24 06:00 BP 116/74 02/29/24 06:00 Pulse Ox 98 02/29/24 06:00 O2 Del Method Room Air 02/29/24 06:00 Weight last 48 hrs Weight 99.79 kg Data NPU 02/28/24 01:20 02/28/24 01:20 A&P Assessment and plan (1) Acute psychosis: (2) Bipolar I disorder with scar: (3) PTSD (post-traumatic stress disorder): (4) Acute psychosis: Plan 23-year-old male with a significant history of mental health and addiction issues known to this unit from hospitalization 5 months ago presents at the behest of his grandmother secondary to concerns for recent aggression on his current medication. The patient reports conflict with grandmother leading to angry outbursts which was concerning to her and its volume and frequency. 1.? Continue current medication. Start Abilify 5 mg p.o. daily. We will begin decreasing Seroquel in the next day or so. 2.? Continue every 15 minute checks for safety. 3.??Encourage individual, group and milieu therapy. 4.? Encourage sober living treatment after discharge at the highest level care to which he is willing to commit. 5.??Will attempt to gather collateral information. Involuntary Hold Information 96 Hour Hold: 96 Hour Involuntary Admission: No Attestations NPU Medical Necessity Statement*: Inpatient hospitalization is medically necessary and the clinically appropriate intervention at this time.? We will monitor/initiate medications and make changes as indicated.? The patient will be in the hospital for over 2 midnights.? The patient?s likely length of stay is 6-9 days. Coding Level of Care Code Acute Code for [facility] Fwd Diagnoses Acute psychosis F23 Bipolar I disorder with scar F31.10 PTSD (post-traumatic stress disorder) F43.10
[2024-02-29] MEDS: ARIPiprazole 10 mg Tablet PO (13:32)
[2024-02-29 14:00] VITALS: BP 116/75; PULSE 91; RESP 16; TEMP 36.6; O2SAT 96
[2024-02-29] MEDS: quetiapine XR (24HR) 50 mg Tablet 200 MG PO (17:34)
[2024-02-29] MEDS: quetiapine XR (24HR) 300 mg Tablet 600 MG PO (17:34)
[2024-02-29 22:00] VITALS: BP 146/88; PULSE 90; RESP 16; TEMP 36.8; O2SAT 99
[2024-03-01 06:00] VITALS: BP 136/92; PULSE 98; RESP 17; TEMP 36.6; O2SAT 98
[2024-03-01] MEDS: ARIPiprazole 10 mg Tablet PO (08:31)
[2024-03-01 14:00] VITALS: BP 143/87; PULSE 95; RESP 16; TEMP 36.9; O2SAT 95
--- NOTE | 2024-03-01 14:46 | P.NPUPN_ITS ---
Subjective NPU 2 Subjective: Patient presented today reporting things are going okay. He really lobbied to go home and misrepresented his situation to his grandmother to get her to say that she was ready for him to go home. After the treatment team spoke with her she reported to him that she agreed with the treatment team that he should stay here while the medication changes were initiated at the very least. We discussed the changes were going to make and the likelihood of discharge at the beginning of next week. He denied any side effects of medication. Mental Status Exam 2 MSE Comments: Patient is an overweight but well-developed white male in hospital scrubs with adequate grooming and limited eye contact. Some tattoos on exposed skin. No abnormal movements except for psychomotor retardation. Cooperative with exam in mild to moderate distress. Speech was decreased volume and normal rate. Mood described as okay and better than earlier, affect subdued and guarded. Thought process was linear. Thought content: Patient denied suicidal or homicidal ideation, there were no delusions reported but concerns for paranoia and persecutory ideas of reference/delusions were noted, he denied auditory or visual hallucinations currently but does report that they have been present recently. He did not appear to be responding to internal stimuli. Attention and concentration were intact and memory was somewhat unreliable but none were formally tested. He is alert and oriented x 3. Insight and judgment were limited and impulse control was limited. Vitals/I&O/Wt Last Vital Signs Temp 98.4 F 03/01/24 14:00 Pulse 95 03/01/24 14:00 Resp 16 03/01/24 14:00 BP 143/87 03/01/24 14:00 Pulse Ox 95 03/01/24 14:00 O2 Del Method Room Air 03/01/24 14:00 Data NPU 02/28/24 01:20 02/28/24 01:20 A&P Assessment and plan (1) Acute psychosis: (2) Bipolar I disorder with scar: (3) PTSD (post-traumatic stress disorder): (4) Acute psychosis: Plan 23-year-old male with a significant history of mental health and addiction issues known to this unit from hospitalization 5 months ago presents at the behest of his grandmother secondary to concerns for recent aggression on his current medication. The patient reports conflict with grandmother leading to angry outbursts which was concerning to her and its volume and frequency. 1.? Continue current medication. Abilify started at 10 mg p.o. daily. We will begin decreasing Seroquel to 600 mg p.o. nightly tomorrow. 2.? Continue every 15 minute checks for safety. 3.??Encourage individual, group and milieu therapy. 4.? Encourage sober living treatment after discharge at the highest level care to which he is willing to commit. 5.??Will attempt to gather collateral information. Involuntary Hold Information 2 96 Hour Hold: 96 Hour Involuntary Admission: No Attestations NPU 2 Medical Necessity Statement*: Inpatient hospitalization is medically necessary and the clinically appropriate intervention at this time.? We will monitor/initiate medications and make changes as indicated.? The patient will be in the hospital for over 2 midnights.? The patient?s likely length of stay is 4-6 days. Coding Level of Care Code Acute Code for g Fwd Diagnoses Acute psychosis F23 Bipolar I disorder with scar F31.10 PTSD (post-traumatic stress disorder) F43.10
[2024-03-01] MEDS: quetiapine XR (24HR) 300 mg Tablet 600 MG PO (17:11)
[2024-03-01] MEDS: quetiapine XR (24HR) 50 mg Tablet 200 MG PO (17:11)
[2024-03-01 22:00] VITALS: BP 126/62; PULSE 118; RESP 17; TEMP 36.6; O2SAT 95
[2024-03-02 06:00] VITALS: BP 118/74; PULSE 76; RESP 17; TEMP 36.6; O2SAT 97
[2024-03-02] MEDS: ARIPiprazole 30 mg Tablet 15 MG PO (08:51)
--- NOTE | 2024-03-02 10:16 | P.NPUPN_ITS ---
Subjective NPU 2 Subjective: Patient presented today reporting that he is tolerating the medication changes thus far. He reports that he is excepting the situation and is just trying to make sure that he does not have to stay any longer than he has to. We discussed that Dr. Banks would be back Tuesday and he would be the one working on his discharge at the beginning of the week. We once again discussed the fact that he had had some missed doses and that probably contributed to his situation. He denied any side effects to the medication. Mental Status Exam 2 MSE Comments: Patient is an overweight but well-developed white male in hospital scrubs with adequate grooming and limited eye contact. Some tattoos on exposed skin. No abnormal movements except for psychomotor retardation. Cooperative with exam in mild to moderate distress. Speech was decreased volume and normal rate. Mood described as okay and better than earlier, affect subdued and guarded. Thought process was linear. Thought content: Patient denied suicidal or homicidal ideation, there were no delusions reported but concerns for paranoia and persecutory ideas of reference/delusions were noted, he denied auditory or visual hallucinations currently but does report that they have been present recently. He did not appear to be responding to internal stimuli. Attention and concentration were intact and memory was somewhat unreliable but none were formally tested. He is alert and oriented x 3. Insight and judgment were limited and impulse control was limited. Vitals/I&O/Wt Last Vital Signs Temp 97.8 F 03/02/24 06:00 Pulse 76 03/02/24 06:00 Resp 17 03/02/24 06:00 BP 118/74 03/02/24 06:00 Pulse Ox 97 03/02/24 06:00 O2 Del Method Room Air 03/02/24 06:00 Data NPU 02/28/24 01:20 02/28/24 01:20 A&P Assessment and plan (1) Acute psychosis: (2) Bipolar I disorder with scar: (3) PTSD (post-traumatic stress disorder): (4) Acute psychosis: Plan 23-year-old male with a significant history of mental health and addiction issues known to this unit from hospitalization 5 months ago presents at the behest of his grandmother secondary to concerns for recent aggression on his current medication. The patient reports conflict with grandmother leading to angry outbursts which was concerning to her and its volume and frequency. 1.? Continue current medication. Abilify started at 10 mg p.o. daily. Decreased Seroquel to 600 mg p.o. nightly tomorrow. 2.? Continue every 15 minute checks for safety. 3.??Encourage individual, group and milieu therapy. 4.? Encourage sober living treatment after discharge at the highest level care to which he is willing to commit. 5.??Will attempt to gather collateral information. Involuntary Hold Information 2 96 Hour Hold: 96 Hour Involuntary Admission: No Attestations NPU 2 Medical Necessity Statement*: Inpatient hospitalization is medically necessary and the clinically appropriate intervention at this time.? We will monitor/initiate medications and make changes as indicated. The patient?s likely length of stay is 3-5 days. Coding Level of Care Code Acute Code for [facility] Fwd Diagnoses Acute psychosis F23 Bipolar I disorder with scar F31.10 PTSD (post-traumatic stress disorder) F43.10
[2024-03-02 14:00] VITALS: BP 138/88; PULSE 100; RESP 14; TEMP 37.1; O2SAT 94
[2024-03-02 20:14] VITALS: BP 134/88; PULSE 83; RESP 18; TEMP 37.4; O2SAT 97
[2024-03-02] MEDS: quetiapine XR (24HR) 300 mg Tablet 600 MG PO (20:56)
[2024-03-03 06:00] VITALS: BP 124/79; PULSE 92; RESP 17; TEMP 36.6; O2SAT 98
[2024-03-03] MEDS: ARIPiprazole 30 mg Tablet 15 MG PO (08:44)
--- NOTE | 2024-03-03 09:33 | P.NPUPN_ITS ---
Subjective NPU 2 Subjective: Patient presented today reporting that he is feeling all right. He continues to tolerate being hospitalized with the plan of being discharged earlier in the week. We discussed that Dr. Banks is returning tomorrow and he was happy that he knows Dr. Banks and so he feels comfortable that we will continue to work towards his best interest. He denies any side effects of medication. Mental Status Exam 2 MSE Comments: Patient is an overweight but well-developed white male in hospital scrubs with adequate grooming and limited eye contact. Some tattoos on exposed skin. No abnormal movements except for psychomotor retardation. Cooperative with exam in mild to moderate distress. Speech was decreased volume and normal rate. Mood described as okay and better than earlier, affect subdued and guarded. Thought process was linear. Thought content: Patient denied suicidal or homicidal ideation, there were no delusions reported but concerns for paranoia and persecutory ideas of reference/delusions were noted, he denied auditory or visual hallucinations currently but does report that they have been present recently. He did not appear to be responding to internal stimuli. Attention and concentration were intact and memory was somewhat unreliable but none were formally tested. He is alert and oriented x 3. Insight and judgment were limited and impulse control was limited. Vitals/I&O/Wt Last Vital Signs Temp 97.9 F 03/03/24 06:00 Pulse 92 03/03/24 06:00 Resp 17 03/03/24 06:00 BP 124/79 03/03/24 06:00 Pulse Ox 98 03/03/24 06:00 O2 Del Method Room Air 03/02/24 14:00 Data NPU 02/28/24 01:20 02/28/24 01:20 A&P Assessment and plan (1) Acute psychosis: (2) Bipolar I disorder with scar: (3) PTSD (post-traumatic stress disorder): (4) Acute psychosis: Plan 23-year-old male with a significant history of mental health and addiction issues known to this unit from hospitalization 5 months ago presents at the behest of his grandmother secondary to concerns for recent aggression on his current medication. The patient reports conflict with grandmother leading to angry outbursts which was concerning to her and its volume and frequency. 1.? Continue current medication. Abilify started at 10 mg p.o. daily. Decreased Seroquel to 600 mg p.o. nightly. 2.? Continue every 15 minute checks for safety. 3.??Encourage individual, group and milieu therapy. 4.? Encourage sober living treatment after discharge at the highest level care to which he is willing to commit. 5.??Will attempt to gather collateral information. Involuntary Hold Information 2 96 Hour Hold: 96 Hour Involuntary Admission: No Attestations NPU 2 Medical Necessity Statement*: Inpatient hospitalization is medically necessary and the clinically appropriate intervention at this time.? We will monitor/initiate medications and make changes as indicated. The patient?s likely length of stay is 2-4 days. Coding Level of Care Code Acute Code for [facility] Fwd Diagnoses Acute psychosis F23 Bipolar I disorder with scar F31.10 PTSD (post-traumatic stress disorder) F43.10
[2024-03-03 14:00] VITALS: BP 124/90; PULSE 94; RESP 14; TEMP 36.9; O2SAT 94
[2024-03-03] MEDS: quetiapine XR (24HR) 300 mg Tablet 600 MG PO (20:17)
[2024-03-03 20:51] VITALS: BP 141/89; PULSE 99; RESP 18; TEMP 37; O2SAT 96
[2024-03-04 06:00] VITALS: BP 117/74; PULSE 96; RESP 16; TEMP 36.7; O2SAT 98
[2024-03-04] MEDS: ARIPiprazole 30 mg Tablet 15 MG PO (08:18)
[2024-03-04] MEDS: nystatin powder 15 gm Btl 1 APPLIC TOPICAL (13:29)
[2024-03-04 14:00] VITALS: BP 123/74; PULSE 68; RESP 16; TEMP 37; O2SAT 98
--- NOTE | 2024-03-04 15:44 | W.PM.NPUPNS ---
Subjective NPU Subjective: 23-year-old male with bipolar disorder currently on multiple medications. The patient had reported that he had felt excessively sedated on Seroquel and stated that he had felt more stable on the Abilify. He had continued to endorse some PTSD symptoms. He reported that he had stopped taking his medications and this had led to his decompensation and psychiatric hospitalization here. He had reported that he would be interested in consideration of an IM [facility] of Abilify. Mental Status Exam MSE Comments: Patient is an overweight but well-developed white male in hospital scrubs with adequate grooming and limited eye contact. Some tattoos on exposed skin. No abnormal movements except for mild psychomotor retardation. He was cooperative with exam in mild to moderate distress. Speech was normal in volume and normal in rate. Mood described as better. His affect was restricted in range. Thought process was linear. Thought content: Patient denied suicidal or homicidal ideation, there were no delusions reported but concerns for paranoia and persecutory ideas of reference/delusions were noted, he denied auditory or visual hallucinations currently but does report that they have been present recently. He did not appear to be responding to internal stimuli. Attention and concentration were intact and memory was somewhat unreliable but none were formally tested. He is alert and oriented x 3. Insight and judgment were limited and impulse control was limited. Vitals/I&O/Wt Last Vital Signs Temp 98.6 F 03/04/24 14:00 Pulse 68 03/04/24 14:00 Resp 16 03/04/24 14:00 BP 123/74 03/04/24 14:00 Pulse Ox 98 03/04/24 14:00 O2 Del Method Room Air 03/04/24 14:00 Weight last 48 hrs Weight 101.151 kg Data NPU 02/28/24 01:20 02/28/24 01:20 A&P Assessment and plan (1) Acute psychosis: (2) Bipolar I disorder with scar: (3) PTSD (post-traumatic stress disorder): (4) Acute psychosis: Plan 23-year-old male with a significant history of mental health and addiction issues known to this unit from hospitalization 5 months ago presents at the behest of his grandmother secondary to concerns for recent aggression on his current medication. The patient reports conflict with grandmother leading to angry outbursts which was concerning to her and its volume and frequency. 1.? Continue current medication. Increase abilify to 15mg daily. Decrease Seroquel to 500 mg p.o. nightly. 2.? Continue every 15 minute checks for safety. 3.??Encourage individual, group and milieu therapy. 4.? Encourage sober living treatment after discharge at the highest level care to which he is willing to commit. 5.??Will attempt to gather collateral information. Involuntary Hold Information 96 Hour Hold: 96 Hour Involuntary Admission: No Attestations NPU Medical Necessity Statement*: Inpatient hospitalization is medically necessary and the clinically appropriate intervention at this time.? We will monitor/initiate medications and make changes as indicated. The patient?s likely length of stay is 2-4 days. Coding Level of Care Code Acute Code for [facility] Fwd Diagnoses Acute psychosis F23 Bipolar I disorder with scar F31.10 PTSD (post-traumatic stress disorder) F43.10
[2024-03-04] MEDS: quetiapine XR (24HR) 50 mg Tablet 200 MG PO (20:20)
[2024-03-04] MEDS: quetiapine XR (24HR) 300 mg Tablet PO (20:20)
[2024-03-04 21:35] VITALS: BP 133/91; PULSE 95; RESP 18; TEMP 37; O2SAT 97
[2024-03-05 05:24] VITALS: BP 158/91; PULSE 113; RESP 18; TEMP 36.5; O2SAT 98
[2024-03-05] MEDS: ARIPiprazole 30 mg Tablet 15 MG PO (08:36)
--- NOTE | 2024-03-05 12:25 | PC.NURSE ---
NEW ORDERS RECEIVED BY DR. NO TO GIVE ABILIFY 400 MG IM NOW TO BE GIVEN IN DELTOID.
[2024-03-05] MEDS: ARIPiprazole Maintena 400 MG IM (13:08)
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
[2024-03-05 13:43] VITALS: BP 158/91; PULSE 94; RESP 18; TEMP 36.5; O2SAT 98
[2024-03-05 14:00] VITALS: BP 124/82; PULSE 121; RESP 16; TEMP 36.7; O2SAT 96
== END 2024-03-05 16:15 | disposition home or self-care (01) | DRG 885 ==
LOC: ER 01:33 → NP 02:11
PROVIDERS: Admitting Provider Psychiatry & Neurology Psychiatry; Emergency Provider Physician Assistant; PCP Nurse Practitioner Family; Visit Provider Psychiatry & Neurology Psychiatry
DX: F23 Brief psychotic disorder (principal); F31.10 Bipolar disorder, current episode manic without psychotic features, unspecified; F43.10 Post-traumatic stress disorder, unspecified; E66.3 Overweight; Z68.30 Body mass index [BMI] 30.0-30.9, adult
CPT/HCPCS: 36415; 80053; 80306; 80307; 85025; 96372; 97150; 97165; 99285